=== PATIENT | male | born 1950 | race Hispanic/Latino ===

== ENCOUNTER → 2023-09-07 | Outpatient (CLI) | payer OTHER ==
[~2023-09-07] MED LIST: AEC81 PO; CLOP75TA32 PO; LOSA50TA64 PO; ROSU40TA70 PO
== END | disposition home or self-care (01) ==
LOC: RAH 12:46
PROVIDERS: ATTEND Internal Medicine Cardiovascular Disease
DX: Z13.6 Encounter for screening for cardiovascular disorders (principal)
CPT/HCPCS: 75571

== ENCOUNTER → 2023-09-09 | Outpatient (CLI) | payer MEDICARE ==
[~2023-09-09] VITALS: Ht 172.7 cm; Wt 76.9 kg
[2023-09-09 13:13] VITALS: BP 146/61; PULSE 66; RESP 18
[2023-09-09 13:27] LABS: BASOPHILS # (AUTO) 0.04 K/uL (0.00-0.20); BASOPHILS % (AUTO) 0.5 % (0.0-5.0); EOSINOPHILS # (AUTO) 0.15 K/uL (0.00-0.70); HEMATOCRIT 40.1 % (42-54); IMMATURE GRANULOCYTE ABSOLUTE 0.02 K/uL (0-1); LYMPHOCYTES # (AUTO) 2.4 K/uL (1.0-4.8); LYMPHOCYTES % (AUTO) 31.1 % (21.0-51.0); MEAN CORPUSCULAR HEMOGLOBIN 34.5 pg (27.0-33.0); MEAN CORPUSCULAR HGB CONC 34.4 g/dL (32.0-36.0); MEAN CORPUSCULAR VOLUME 100.3 fL (79-99); MONOCYTES # (AUTO) 0.7 K/uL (0.1-1.0); MONOCYTES % (AUTO) 9.2 % (3.0-13.0); NEUTROPHILS # (AUTO) 4.4 K/uL (1.8-7.7); NEUTROPHILS % (AUTO) 56.9 % (40.0-77.0); PLATELET COUNT (AUTO) 243 K/uL (130-400); RED CELL DISTRIBUTION WIDTH 12.3 % (11.0-15.5); WHITE BLOOD COUNT (AUTO) 7.7 K/uL (4.8-10.8)
[2023-09-09 13:35] LABS: APPEARANCE,URINE CLEAR (CLEAR); BILIRUBIN,URINE NEGATIVE (NEGATIVE); COLOR,URINE LIGHT-YELLOW (YELLOW); GLUCOSE, URINE (UA) NEGATIVE (NEGATIVE); KETONES,URINE NEGATIVE (NEGATIVE); LEUKOCYTE ESTERASE ,URINE NEGATIVE Leu/uL (NEGATIVE); NITRATE,URINE NEGATIVE (NEGATIVE); OCCULT BLOOD,URINE NEGATIVE (NEGATIVE); PH,URINE 5.5 (5.0-8.0); PROTEIN,URINE NEGATIVE (NEGATIVE); UROBILINOGEN,URINE 0.2 mg/dL (0.2-1.0)
[2023-09-09 13:37] LABS: ADD UA MICROSCOPIC NO
[2023-09-09 13:41] LABS: CREATININE 1.1 mg/dL (0.5-1.3); POTASSIUM 4.5 mmol/L (3.5-5.1)
[2023-09-09 13:43] LABS: PROTHROMBIN TIME 10.8 SEC (9.6-11.6)
[2023-09-09 13:45] LABS: PARTIAL THROMBOPLASTIN TIME 29.6 SEC (26.3-35.5)
[2023-09-09 13:58] LABS: B-TYPE NATRIURETIC PEPTIDE 16 pg/mL (0-100)
== END | disposition home or self-care (01) ==
LOC: DAH 10:00 → EDUNIT# 13:00 → EDSTATUS 13:00
PROVIDERS: ATTEND Internal Medicine Cardiovascular Disease
DX: Z01.812 Encounter for preprocedural laboratory examination (principal); I65.23 Occlusion and stenosis of bilateral carotid arteries
CPT/HCPCS: 36415; 71045; 80048; 81003; 83880; 85025; 85610; 85730; 93005

== ENCOUNTER 2023-09-23 10:40 | Day surgery (SDC) | payer MEDICARE ==
[2023-09-21 10:55] LABS: BASOPHILS # (AUTO) 0.06 K/uL (0.00-0.20); BASOPHILS % (AUTO) 0.7 % (0.0-5.0); EOSINOPHILS # (AUTO) 0.17 K/uL (0.00-0.70); EOSINOPHILS % (AUTO) 2.1 % (0.0-8.0); HEMATOCRIT 39.9 % (42-54); IMMATURE GRANULOCYTE ABSOLUTE 0.02 K/uL (0-1); LYMPHOCYTES # (AUTO) 1.7 K/uL (1.0-4.8); LYMPHOCYTES % (AUTO) 20.4 % (21.0-51.0); MEAN CORPUSCULAR HEMOGLOBIN 33.6 pg (27.0-33.0); MEAN CORPUSCULAR HGB CONC 33.8 g/dL (32.0-36.0); MEAN CORPUSCULAR VOLUME 99.3 fL (79-99); MONOCYTES # (AUTO) 0.7 K/uL (0.1-1.0); MONOCYTES % (AUTO) 8.8 % (3.0-13.0); NEUTROPHILS # (AUTO) 5.6 K/uL (1.8-7.7); NEUTROPHILS % (AUTO) 67.8 % (40.0-77.0); PLATELET COUNT (AUTO) 262 K/uL (130-400); RED BLOOD CELL COUNT(AUTO) 4.02 MIL/uL (4.50-6.20); WHITE BLOOD COUNT (AUTO) 8.3 K/uL (4.8-10.8)
[2023-09-21 10:57] LABS: APPEARANCE,URINE CLEAR (CLEAR); BILIRUBIN,URINE NEGATIVE (NEGATIVE); COLOR,URINE LIGHT-YELLOW (YELLOW); GLUCOSE, URINE (UA) NEGATIVE (NEGATIVE); KETONES,URINE NEGATIVE (NEGATIVE); LEUKOCYTE ESTERASE ,URINE NEGATIVE Leu/uL (NEGATIVE); NITRATE,URINE NEGATIVE (NEGATIVE); OCCULT BLOOD,URINE NEGATIVE (NEGATIVE); PROTEIN,URINE NEGATIVE (NEGATIVE); UROBILINOGEN,URINE 0.2 mg/dL (0.2-1.0)
[2023-09-21 10:58] LABS: CREATININE 1.1 mg/dL (0.5-1.3)
[2023-09-21 11:00] LABS: ADD UA MICROSCOPIC NO
[2023-09-21 11:02] LABS: PROTHROMBIN TIME 10.8 SEC (9.6-11.6)
[2023-09-21 11:04] LABS: PARTIAL THROMBOPLASTIN TIME 30.2 SEC (26.3-35.5)
[2023-09-21 11:16] LABS: B-TYPE NATRIURETIC PEPTIDE 28 pg/mL (0-100)
[2023-09-21 11:31] VITALS: BP 163/91; PULSE 70; RESP 17
[2023-09-23] VITALS (12 sets, daily range): BP systolic 124–148; BP diastolic 54–80; PULSE 57–83; RESP 14–19
[~2023-09-23] VITALS: Ht 172.7 cm; Wt 76.5 kg
[2023-09-23] MEDS ORDERED: 0.9%NACL 1000ML 1,000 ML IV SCH (11:30)
[2023-09-23] MEDS ORDERED: IOHEXOL 350 MG/ML 100ML INFUS..BTL IV ONE ×2 (16:02→16:44)
[2023-09-23] MEDS ORDERED: SODIUM BICARB 50MEQ 50ML VIAL 50 ML ONE (16:02)
[2023-09-23] MEDS ORDERED: LIDOCAINE HCL 400MG/20ML VIAL ONE (16:02)
[2023-09-23] MEDS ORDERED: NITROGLYCERIN 50MG VIAL ONE (16:03)
[2023-09-23] MEDS ORDERED: MEPERIDINE-PF 25 MG/ML SYG ONE ×2 (16:23→17:10)
[2023-09-23] MEDS ORDERED: MIDAZOLAM HCL 1 MG/ML 2ML VIAL ONE ×2 (16:24→17:10)
[2023-09-23] MEDS ORDERED: HEPARIN 10,000 UNIT/10ML (1,000 UNIT/ML) VIAL ONE (16:27)
[2023-09-23] MEDS ORDERED: ATROPINE 1MG SYG IVP ONE (16:32)
[2023-09-23] MEDS ORDERED: IOHEXOL-350 50ML VIAL IV ONE (16:38)
[2023-09-23] MEDS: 0.9%NACL 1000ML 1,000 ML IV SCH (20:06)
== END 2023-09-23 22:38 | disposition home or self-care (01) ==
LOC: DAH 10:40
PROVIDERS: ATTEND Internal Medicine Cardiovascular Disease
DX: I25.10 Atherosclerotic heart disease of native coronary artery without angina pectoris (principal); I65.23 Occlusion and stenosis of bilateral carotid arteries; I10 Essential (primary) hypertension; E78.00 Pure hypercholesterolemia, unspecified; H34.231 Retinal artery branch occlusion, right eye; Z79.899 Other long term (current) drug therapy
CPT/HCPCS: 80048; 83880; 85025; 85610; 85730; 81003; 36415 ×2; 93005; 93458; 36223; 93571; 85347; 75630; C1887; C1894; C1760; C1769; J3490 ×3; J1644 ×2; J2250 ×2; J2175 ×2; Q9967 ×2; A4215; A4222; A4221; A4663; A4216; A4606; Q9965 ×2; A4223 ×3; 75716; 99156; 99157; J0461

== ENCOUNTER → 2024-01-25 | Outpatient (CLI) | payer MEDICARE ==
[~2024-01-25] MED LIST changes: -ROSU40TA70 PO; +ROSU40TA88 PO
== END | disposition home or self-care (01) ==
LOC: SHCH 09:17
PROVIDERS: ATTEND Internal Medicine Cardiovascular Disease
DX: I65.21 Occlusion and stenosis of right carotid artery (principal)
CPT/HCPCS: 93880

== ENCOUNTER → 2024-02-23 | Outpatient (CLI) | payer MEDICARE ==
[~2024-02-23] MED LIST changes: +IOHEXOL 350 MG/ML 100ML INFUS..BTL IV ONE
--- NOTE | 2024-02-23 10:59 | HMCIMG ---
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 2D and 3D multiplanar reconstruction images were obtained in the head and neck. FINDINGS: Pre contrast images show normal-appearing brain parenchyma. Ventricles and sulci appear normal. There is no evidence of intracranial hemorrhage. There is a stent present in the right carotid bifurcation, extending from common carotid into the internal carotid artery. Proximal portion of the stent appears widely patent. Distal portion appears collapsed upon itself and markedly narrowed, this may be due to extensive adjacent calcified plaque, narrowing is 70-90%. There is mild plaque in the left bifurcation. There is no focal narrowing at the origin of the internal carotid artery. Within 1 cm above the origin there is a dissection flap. This could also be a large ulceration. This is short segment, there is 50-70% narrowing of the left internal carotid artery immediately above the dissection flap. Remainder of the internal carotid artery appears unremarkable. Both common carotid arteries appear normal. There is a dominant left and a smaller right vertebral artery, both are patent to the basilar confluence. Images in the brain demonstrate normal-appearing internal carotid arteries. There is absent A1 segment of the right anterior cerebral artery, a common normal variation. Anterior, middle and posterior cerebral arteries appear otherwise normal. Posterior fossa vessels are unremarkable as well. There is no evidence of aneurysm or AVM. There is no evidence of focal vessel occlusion. IMPRESSION: 1. Stent in place in the right bifurcation, distal portion of the stent appears narrow due to extensive adjacent calcified plaque, degree of narrowing is 70-80%. 2. There is a calcified plaque left bifurcation without focal narrowing, however there is a short segment dissection immediately above this level, versus a large ulcerated plaque, there is at least 50-70% narrowing of the left internal carotid artery at this level. 3. Dominant left and smaller right vertebral arteries are patent to the basilar confluence. 4. Normal intracranial findings CT was performed with one or more following dose reduction techniques: automated exposure control, adjustment of the mA and kv according to patient's size, or use of a iterative reconstruction technique.
== END | disposition home or self-care (01) ==
LOC: RAH 08:55
PROVIDERS: ATTEND Internal Medicine Cardiovascular Disease
DX: I65.23 Occlusion and stenosis of bilateral carotid arteries (principal)
CPT/HCPCS: 70496; 70498; Q9967